=== PATIENT | male | born 1970 | race Caucasian/White ===

== ENCOUNTER → 2025-01-11 | Outpatient (CLI) | payer MEDICAID, SELFPAY ==
--- NOTE | 2025-01-11 14:35 | XR_ITS ---
Examination: Left hip AP, lateral, AP pelvis 3 views Technique: Hip AP lateral, AP pelvis, 3 views Exam date and time: January 11, 2025: 1509 hours INDICATIONS: Left hip pain beginning 5 years ago. FINDINGS: Moderate left hip osteoarthritis No left hip fracture or dislocation Total right hip arthroplasty with satisfactory alignment IMPRESSION: Moderate left hip osteoarthritis.
== END | disposition home or self-care (01) ==
PROVIDERS: PCP Student in an Organized Health Care Education/Training Program; Referring Provider Student in an Organized Health Care Education/Training Program; Visit Provider Student in an Organized Health Care Education/Training Program
DX: M16.12 Unilateral primary osteoarthritis, left hip (principal)
CPT/HCPCS: 73502

== ENCOUNTER 2025-03-15 14:16 | Outpatient (RCR) | payer MEDICAID, SELFPAY ==
--- NOTE | 2025-03-15 14:46 | PT.OIERPT ---
PT OP Initial Eval Patient Information Outpatient Physical Therapy Treatment Date: 03/15/25 Visit Reasons: CERVICALGIA Medical Diagnosis: M54.2 Treatment Dx #1: Neck Pain Start of Care: 03/15/25 Date of Onset: 10 years Smoking Status Smoking Status: Never smoker Initial Assessment Subjective: Pt is a 55 y/o male reports of chronic neck pain (3-10/10) pain worsening in the past few months. Pt has moved from [place] to [place] recently. Pt mentioned he had a seizure a few months back and fracture his neck but is unaware of which level. No MRI has been done thus far. Pt notice intermittne numbness and tingling of the index and middle fingers. Pt has limitation with driving, overhead motions, sitting, standing, chores, self care, and performing work duties. Objective: C/S AROM: all motions are 75 % towards end range with pain in all plane BUE AROM: all motions are WFL BUE MMTs: grossly 3+/5 Scapula MMTs: grossly 3+/5 Palpation: TTP upper trape and levator scapulae; hypomobile C5-C7 facets DNF Endurance Test: 3 sec Assessment: Pt demonstrate neck pain with BUE weakness leading to difficulty with ADLs. Pt will attempt physical therapy if pain persist Pt will be refer back to provider for further consultation. Short Term and Alf Goals 1) Increase c/s AROM WFL in 6 wks to be able to perform chores 2) Increase BUE MMTs grossly to 4-/5 in 6 wks to be able to perform recreational activities 3) Decrease neck pain to 2/10 in 6 wks to be able to sit and stand more than 30 mins 4) Increase DNF endurance test to 15 sec in 6 wks to be able to perfrom drive with less limitation 5) Indep with HEP Treatment Plan 1) Manual Therapy 2) Therapeutic Activities 3) Therapeutic Exercises 4) Modalities (ice, heat) Frequency and Duration: 2 x wk for 6 wks Certification Dates: 03/05/25 to 06/03/25 Procedure Charges OP PT Eval Mod Complex 30 minutes: Yes
== END 2025-03-16 23:59 | disposition home or self-care (01) ==
LOC: CPTX 14:16
PROVIDERS: PCP Student in an Organized Health Care Education/Training Program; Referring Provider Student in an Organized Health Care Education/Training Program; Visit Provider Student in an Organized Health Care Education/Training Program
DX: M54.2 Cervicalgia (principal); G89.29 Other chronic pain; R20.0 Anesthesia of skin; R20.2 Paresthesia of skin; R53.1 Weakness
CPT/HCPCS: 97162